=== PATIENT | male | born 1975 | race Caucasian/White ===

== ENCOUNTER 2021-07-08 11:34 | Emergency (ER) | payer OTHER, BC ==
[~2021-07-08] VITALS: Ht 177.8 cm; Wt 100.0 kg
[2021-07-08] MEDS ORDERED: morphine 4 MG/ML inj SYRINge IV PRN (13:00)
[2021-07-08] MEDS ORDERED: ondansetron/PF 4mg/2ml inj IV ONE (13:00)
[2021-07-08] MEDS ORDERED: normal saline 1000ML IV soln IVB ONE (13:00)
--- NOTE | 2021-07-08 13:00 | NUR ---
Per Dr. fan patient changed to a level 2 trauma, paged out by mitch may
[2021-07-08 13:38] LABS: CLARITY,URINE CLEAR (Clear); COLOR,URINE YELLOW (Yellow); GLUCOSE, URINE NEGATIVE (Neg); KETONES,URINE 40 mg/dl (Neg); LEUKOCYTE ESTERASE ,URINE NEGATIVE (Neg); NITRITES, URINE NEGATIVE (Neg); OCCULT BLOOD,URINE TRACE-INTACT (Neg); PH,URINE 5.5 (4.8-8.0); PROTEIN,URINE NEGATIVE (Neg); UROBILINOGEN,URINE 0.2 E.U/dL (0.2-1.0)
[2021-07-08 13:44] LABS: UA COLLECTION TYPE CLN CATCH MIDSTREAM
[2021-07-08 13:52] LABS: BACTERIA,URINE NONE SEEN /HPF (Neg); RBC,URINE 0-2 /HPF (0-2); WBC,URINE NONE SEEN /HPF (0-4)
[2021-07-08] MEDS ORDERED: iohexol 300mg/ml 100ml inj. ONE (14:04)
[2021-07-08 14:12] VITALS: BP 120/79
== END 2021-07-08 15:35 | disposition home or self-care (01) ==
LOC: ER 11:35
DX: M54.2 Cervicalgia (principal); M54.9 Dorsalgia, unspecified; M25.511 Pain in right shoulder; Z88.0 Allergy status to penicillin; V86.99XA Unspecified occupant of other special all-terrain or other off-road motor vehicle injured in nontraffic accident, initial encounter; Y93.89 Activity, other specified; Y92.89 Other specified places as the place of occurrence of the external cause; Y99.8 Other external cause status
CPT/HCPCS: 71260; 74177; 81001; 96361; 96374; 96375; 99285; J2270; J2405; J7030; Q9967